=== PATIENT | male | born 1970 | race African-American/Black ===

== ENCOUNTER 2018-12-25 03:26 | Emergency (ER) | payer OTHER ==
[~2018-12-25] VITALS: Ht 167.6 cm; Wt 140.6 kg
[2018-12-25] MEDS ORDERED: BACTRIM DS TAB1 EACH PO (04:11)
[2018-12-25] MEDS ORDERED: DIFLUCAN100 MG PO (04:11)
[2018-12-25] MEDS ORDERED: NYSTATIN 100,0015 G1 TOP (04:11)
[2018-12-25] MEDS ORDERED: NORCO 5-325 TA1 EAC1 PO (04:11)
[2018-12-25 04:19] VITALS: BP 153/89
== END 2018-12-25 04:21 | disposition home or self-care (01) ==
LOC: M.ERS 03:26
DX: B35.6 Tinea cruris (principal); I10 Essential (primary) hypertension; Z91.010 Allergy to peanuts